=== PATIENT | male | born 1935 | race African-American/Black ===

== ENCOUNTER 2016-10-31 18:35 | Emergency (ER) | payer OTHER ==
[~2016-10-31] VITALS: Ht 160 cm; Wt 82.1 kg
[~2016-10-31 18:35] MED LIST: APAP/CODEINE ELI5 M1 OR; LEVAQUIN 500 M500 MG PO; POTASSIUM20
[2016-10-31 18:36] VITALS: BP 132/94
[2016-10-31] MEDS ORDERED: KEFLEX500 MG PO (19:02)
== END 2016-10-31 19:18 | disposition home or self-care (01) ==
LOC: ER 18:35
DX: S61.210A Laceration without foreign body of right index finger without damage to nail, initial encounter (principal); I10 Essential (primary) hypertension; E78.5 Hyperlipidemia, unspecified; W22.8XXA Striking against or struck by other objects, initial encounter; Y93.9 Activity, unspecified; Y92.9 Unspecified place or not applicable; Y99.9 Unspecified external cause status

== ENCOUNTER 2017-10-13 20:03 | Emergency (ER) | payer OTHER ==
[~2017-10-13] VITALS: Ht 162.6 cm; Wt 78.0 kg
[~2017-10-13 20:03] MED LIST changes: +KEFLEX500 MG PO
[2017-10-13] MEDS ORDERED: TIZANIDINE HCL4 MG PO (22:02)
== END 2017-10-13 22:18 | disposition home or self-care (01) ==
LOC: ER 20:03
DX: S16.1XXA Strain of muscle, fascia and tendon at neck level, initial encounter (principal); M54.12 Radiculopathy, cervical region; I10 Essential (primary) hypertension; E78.5 Hyperlipidemia, unspecified; Z98.890 Other specified postprocedural states; X58.XXXA Exposure to other specified factors, initial encounter; Y93.89 Activity, other specified; Y92.89 Other specified places as the place of occurrence of the external cause; Y99.8 Other external cause status

== ENCOUNTER 2019-04-24 16:15 | Emergency (ER) | payer OTHER ==
[~2019-04-24] VITALS: Ht 162.6 cm; Wt 72.6 kg
[~2019-04-24 16:15] MED LIST changes: +TIZANIDINE HCL4 MG PO
[2019-04-24 17:47] LABS: URINE BILIRUBIN NEGATIVE (Negative); URINE BLOOD TRACE (Negative); URINE CLARITY CLEAR; URINE COLOR YELLOW; URINE GLUCOSE-RANDOM* NEGATIVE (Negative); URINE KETONES NEGATIVE (Negative); URINE LEUKOCYTES NEGATIVE (Negative); URINE NITRITE NEGATIVE (Negative); URINE PROTEIN (DIPSTICK) TRACE (Negative); URINE UROBILINOGEN 0.2 E.U./dl (0.2-1.0)
[2019-04-24 17:55] LABS: AMP/METHAMP Negative (Negative); BARBITURATES Negative (Negative); BENZODIAZEPINES Negative (Negative); COCAINE Negative (Negative); METHADONE Negative (Negative); OPIATES Negative (Negative); PCP Negative (Negative)
[2019-04-24 18:03] LABS: ABSOLUTE NEUTROPHILS 1.9 thou/uL (1.4-8.2); BASOPHILS 0.7 % (0.0-2.0); EOSINOPHILS 2.9 % (0.0-3.0); HEMATOCRIT 38.4 % (42.0-52.0); HEMOGLOBIN 12.6 gm/dL (14.0-18.0); MCH 28.5 pg (26.0-34.0); MCHC 32.9 g/dL (28.0-37.0); MCV 86.5 fL (80.0-100.0); MONOCYTES 8.2 % (1.0-8.0); PLATELET COUNT 198 thou/uL (150-400); POLYS 56.2 % (36.0-66.0); RBC 4.44 mil/uL (4.50-6.00); RDW 16.1 % (10.5-14.5); WBC 3.4 thou/uL (4.0-11.0)
[2019-04-24 18:10] LABS: ANION GAP 8 mmol/L (7-16); BUN 20 mg/dL (7-18); CALCIUM 9.8 mg/dL (8.5-10.1); CHLORIDE 105 mmol/L (98-107); CO2 29 mmol/L (21-32); CREATININE 1.3 mg/dL (0.7-1.3); GLUCOSE 95 mg/dL (74-106); POTASSIUM 3.6 mmol/L (3.5-5.1); SODIUM 142 mmol/L (136-145)
[2019-04-24 18:19] LABS: TROPONIN-I <0.06 ng/mL (<0.06)
[2019-04-24 18:51] VITALS: BP 161/74
--- NOTE | 2019-04-27 19:46 | EKG ---
[place] [address] [facility] [facility] [place] [address] ELECTROCARDIOGRAM REPORT Name: CASANDRA DALE CARMEN Room [facility]: [facility] [id number] ������������������ Admission: 04/24/19 ������������������ Attend Phys: Discharge: 04/24/19 ������������������ Date of : 31 Report #: [id number] ����������������������������������������������������������������� [id number] THIS REPORT FOR: //name// [facility] ED Test Date: 2019-04-24 Test Time: 16:40:21 Pat Name: CASANDRA DALE Department: Room: Gender: Analysis Evaluator: aj : 1935 Requested By: Jayant Narvaez Order Number: [id number] MD: Ismael Samayoa Measurements Intervals Independence Rate: 72 P: -13 FL: 174 QRS: -47 QRSD: 95 T: 50 QT: 392 QTc: 430 Interpretive Statements Sinus rhythm Multiple ventricular premature complexes Left anterior fascicular block Abnormal R-wave progression, late transition Compared to ECG 06/14/2007 17:35:09 Ventricular premature complex(es) now present Left anterior fascicular block now present Left-axis deviation no longer present T-wave abnormality no longer present Electronically Signed On 04-27-2019 19:46:22 CDT by Ismael Samayoa [email or web address] ��������������������������������������������� <ELECTRONICALLY SIGNED> ���������������������������������������� By: Ismael Samayoa MD ��������������������������������������������� 04/27/19 1946 1640 1640 Ismael Samayoa MD /EPI
== END 2019-04-24 23:26 | disposition home or self-care (01) ==
LOC: ER 16:15
PROVIDERS: Nurse Practitioner
DX: R53.83 Other fatigue (principal); I10 Essential (primary) hypertension; E78.5 Hyperlipidemia, unspecified